=== PATIENT | male | born 1945 | race Caucasian/White ===

== ENCOUNTER 2023-07-26 17:11 | Inpatient (IN) | payer MEDICARE, SELFPAY ==
--- NOTE | ~2023-07-26 | US_ITS ---
EXAMINATION: US abdomen limited DATE: 07/27/2023 08:25 INDICATION: Abdominal pain. TECHNIQUE: Multiple grayscale and Doppler ultrasound images of the abdomen were obtained. COMPARISON: CT abdomen and pelvis 07/26/2023 FINDINGS: The visualized portions of the head and body of the pancreas are normal. The liver is cameron l without focal lesion. There is normal flow in main portal vein. The gallbladder is distended. No vi sible gallstones. Gallbladder wall thickening is noted. There is no sonographic Miller sign. The comm on duct is normal and measures 4 mm. IMPRESSION: 1. Gallbladder distention and gallbladder wall thickening, but no visible gallstones or sonographic M urphy sign. These findings are indeterminate for acute cholecystitis. Consider hepatobiliary scintigr aphy. Reviewed, dictated and finalized at location A. IMPRESSION: 1. Gallbladder distention and gallbladder wall thickening, but no visible galls tones or sonographic Miller sign. These findings are indeterminate for acute ch olecystitis. Consider hepatobiliary scintigraphy.
--- NOTE | ~2023-07-26 | CT_ITS ---
EXAMINATION: CT abdomen pelvis w con DATE: 07/26/2023 18:58 INDICATION: Abdominal pain, fever, nausea, vomiting and diarrhea. TECHNIQUE: Computed tomography (CT) of the abdomen and pelvis was performed with 100 mL Omnipaque-350 intravenous contrast. Automated exposure control and iterative reconstruction technique were employe d. The dose-length product was 299.09 mGy-cm. COMPARISON: None FINDINGS: Mild dependent and basilar atelectasis at the bilateral lower lungs. Heart size is normal. Atheroscle rotic coronary artery calcifications and change of prior median sternotomy. No pericardial or pleural effusion. Small sliding-type hiatal hernia. There is subtle haziness to the fat along the mildly dis tended gallbladder which measures up to 4.4 cm but which is without evident wall thickening. No intra or extra hepatic biliary ductal dilation. Liver, spleen, pancreas and bilateral adrenal glands are n ormal. Small bilateral renal atrophy with multiple small bilateral renal cysts the largest on the rig ht measuring 1.4 cm in maximal diameter. 4 mm nonobstructing stone in upper pole calyx of the right k idney. There is mild colonic diverticulosis with a sigmoid and descending colon predominance. There is no adjacent inflammatory change to suggest diverticulitis. Small bowel and appendix are normal. B ladder is normal. Mild prostatomegaly. No free intraperitoneal gas or fluid. No pathologically enlarg ed abdominal or pelvic lymphadenopathy. Back abdominal aorta. Severe lumbar spondylosis. IMPRESSION: 1. Suggestion mild pericholecystic stranding but without evident gallbladder wall thickening which do es raise mild suspicion for acute cholecystitis. Correlate for Miller sign and if clinically indicate d could consider further evaluation with either right upper quadrant ultrasound or HIDA scan. 2. Small sliding-type hiatal hernia. 3. 4 mm nonobstructing right renal stone. 4. Mild diverticulosis. Reviewed, dictated and finalized at location A. IMPRESSION: 1. Suggestion mild pericholecystic stranding but without evident gallbladder wa ll thickening which does raise mild suspicion for acute cholecystitis. Correlat e for Miller sign and if clinically indicated could consider further evaluation with either right upper quadrant ultrasound or HIDA scan. 2. Small sliding-type hiatal hernia. 3. 4 mm nonobstructing right renal stone. 4. Mild diverticulosis.
[2023-07-26 17:13] VITALS: BP 159/80; PULSE 112; RESP 20; TEMP 36.8; O2SAT 97
--- NOTE | 2023-07-26 18:01 | ED.GENADULT ---
HPI - General Adult General Chief complaint: Abdominal Pain <Lula Cage, SALES PROGRAM COORDINATOR - Last Filed: 07/26/23 18:07> Stated complaint: fever, gall bladder issues <Lula Cage SALES PROGRAM COORDINATOR - Last Filed: 07/26/23 18:07> Time Seen by Provider: 07/26/23 18:01 <Lula Cage, SALES PROGRAM COORDINATOR - Last Filed: 07/26/23 18:07> Focused HPI: Eric Solomon is a 78 y/o male who presents with reports of having abdominal pain right upper quadrant at 2200, he went to an ER in [place] last night for it and had a cardiac work up that was normal and then ct of abdomen and it showed inflamed gallbladder, but stable and instructed to return if his pain got worse. He saw his PCP today and he states that the pain is still there / no nausea/vomiting/ he had a Gatorade today but hasn't wanted to eat anything today. His PCP wanted him to get checked back out. GENERAL: no acute distress. HEAD: Normocephalic, atraumatic. CHEST: Clear to auscultation. ?No respiratory distress. HEART: Regular rate and rhythm.? NEURO: ?Alert and oriented x3. Patient screened in triage and initial orders placed.? ?Additional care and disposition to be based upon?diagnostic testing and treatment. <Lula Cage, SALES PROGRAM COORDINATOR - Last Filed: 07/26/23 18:07> Source: patient and family <Lesia Winchester MD - Last Filed: 07/26/23 23:56> Mode of arrival: ambulatory <Lesia Winchester MD - Last Filed: 07/26/23 23:56> Limitations: no limitations <Lesia Winchester MD - Last Filed: 07/26/23 23:56> History of Present Illness HPI narrative: Agree with above with the following additions: Had received a phone call from patient's PCP office regarding this patient. They note that he had gone to the [facility] ED (an OSH) yesterday and had a CT scan showed a distended gallbladder. They note that he had history sludge previously noted. They note that he was not placed on oral antibiotics and that he had gotten worse, now with fevers chills. They stated they could not send him back to the original emergency department given no surgeon on-call and thus advising he presents by private vehicle here which he did. Patient states he went to the emergency department at approximately 10:00 p.m. last night. He states his symptoms of nausea vomiting started Monday have since resolved. He went to the primary care physician today and was febrile. Last oral intake 2:00 p.m.. Last bowel movement yesterday evening and he denies diarrhea, constipation bloody stools. He does continue to have right upper quadrant pain. Patient's only medications are amlodipine 5mg, Lipitor, and gabapentin. Not on anticoagulation. <Lesia Winchester MD - Last Filed: 07/26/23 23:56> Related Data Allergies/adverse reactions: Allergies Allergy/AdvReac Type Severity Reaction Status Date / Time penicillin G Allergy Rash Verified 07/26/23 19:06 <Lula Cage SALES PROGRAM COORDINATOR - Last Filed: 07/26/23 18:07> PMFSH Past Medical History Medical History: Medical History (Updated 07/26/23 @ 23:56 by Lesia Winchester MD) Hypertension <Lula Cage, SALES PROGRAM COORDINATOR - Last Filed: 07/26/23 18:07> Surgical History Surgical History: Surgical History (Updated 07/26/23 @ 20:47 by Giorgio Roy MD) H/O heart bypass surgery 2004 <Lula Cage, SALES PROGRAM COORDINATOR - Last Filed: 07/26/23 18:07> Social History Social History: Social History (Updated 07/26/23 @ 20:03 by Lesia Winchester MD) Living arrangements: with family <Lula Cage SALES PROGRAM COORDINATOR - Last Filed: 07/26/23 18:07> Exam Narrative: GENERAL: Well-appearing, well-nourished, and in no acute distress. HEAD: Normocephalic, atraumatic. EYES: Non injected, non icteric ENT: Nares clear, no rhinorrhea or epistaxis. NECK: Supple. CHEST: Speaking in full sentences. No respiratory distress. HEART: Tachycardic rate and rhythm. . ABDOMEN: Soft, nondistended. Tenderness to palpation of right upper quadrant. Miller sign positive. EXTREMITIES: Normal ran
[2023-07-26 18:22] LABS: Hematocrit 40.6 % (42.0-52.0); Hemoglobin 13.3 g/dL (14.0-18.0); Mean Corpuscular HGB Conc 32.8 g/dl (32-36); Mean Corpuscular Hemoglobin 32.4 pg (26-34); Mean Corpuscular Volume 98.8 fl (80-100); Mean Platelet Volume 9.1 fl (7.4-10.4); Platelet Count Result 223 k/mm3 (150-375); Red Blood Count 4.11 M/mm3 (4.6-6.20); Red Cell Distribution Width 13.4 % (11.5-14.5); White Blood Count 20.4 K/mm3 (4.5-10.0)
[2023-07-26 18:33] LABS: Alanine Aminotransferase 20 U/L (6-50); Albumin Level 4.3 g/dL (3.5-5.1); Alkaline Phosphatase 68 U/L (38-126); Anion Gap 5 mmol/L (4-12); Aspartate Amino Transferase 39 U/L (17-59); Bilirubin,Total 0.7 mg/dL (0.2-1.3); Blood Urea Nitrogen 22 mg/dL (9-20); Carbon Dioxide 31 mmol/L (22-30); Chloride 99 mmol/L (98-107); Estimated CRCL calculation 51 ml/min; Estimated Glomerular Filt Rate > 60; Glucose 113 mg/dL (65-110); Lipase 31 U/L (23-300); Potassium 4.1 mmol/L (3.4-5.0); Sodium 135 mmol/L (137-145)
[2023-07-26 18:40] VITALS: BP 153/80; PULSE 93; RESP 18; TEMP 37.8; O2SAT 99
[2023-07-26 18:40] LABS: Appearance Urine Clear (Clear); Bacteria Urine None Seen /hpf; Bilirubin Urine Negative (Negative); Blood Urine 2+ (Negative); Color Urine Dark Yellow (Yellow); Glucose Urine UA Negative (Negative); Ketones Urine Negative (Negative); Leukocyte Esterase Ur Negative LEU/UL (Negative); Nitrate Urine Negative (Negative); Non Pathogenic Casts 0-2; Protein Urine 1+ mg/dL (Negative); RBC Urine 51-100 /hpf (0-2); Squamous Epithelial Cell Urine None Seen /hpf (Few); Urobilinogen Urine 0.2 mg/dL (<2.0); WBC Urine 0-5 /hpf (0-3); pH Urine 5.5 (5.0-9.0)
[2023-07-26 18:55] LABS: Band Neutrophils Percent 3 % (0-6); Lymphocytes Absolute Manual 1.02 K/mm3 (1.1-4.5); Monocytes Absolute Manual 1.42 K/mm3 (0.1-0.90); Monocytes Percent Manual 7 % (3-9); Neutrophils Absolute Manual 17.95 K/mm3 (1.3-6.7); Neutrophils Percent Manual 85 % (46-73); Platelet Estimate Adequate (Adequate); Schistocytes None Seen; Total Cells Counted 100
[2023-07-26 19:02] LABS: Specific Grav Ur 1.042 (1.001-1.035)
[2023-07-26 19:03] LABS: Add Urine Microscopic? YES
[2023-07-26] MEDS: ACETAMINOPHEN 500 MG TABLET 1000 MG PO (19:34)
[2023-07-26] MEDS: CEFEPIME 1 GM/NS 50 ML 1 GM/50 ML BAG IVPB (19:57)
[2023-07-26 20:03] LABS: Lactic Acid Reflex 1.3 mmol/L (0.7-2.0)
[2023-07-26] MEDS: VANCOMYCIN 1,500 MG/NS 500 ML 1,500 MG/500 ML BAG 250 MG IVPB (20:29)
--- NOTE | 2023-07-26 20:42 | PM.IMHP ---
H&P: HPI History of Present Illness Date/Time: 07/26/23 20:42 Chief Complaint: Abdominal pain right upper quadrant Narrative: Patient came to the hospital complaining of abdominal pain nausea vomiting and diarrhea. According the patient on Monday early Monday he started to have some diarrhea and abdominal pain he seek medical help on Monday then he went to the urgent care center initial workup showed that he had gallstones with some sludging. He was given IV antibiotics and sent home. Patient was asked to follow-up with the GI and surgical team as outpatient. Tonight patient came to our emergency room complaining of severe abdominal pain getting worse not able to keep any food down. Patient has history of hypertension also history of coronary disease history of CABG done about 19 years ago. Patient has past medical history of hyperlipidemia, gastric reflux, peripheral neuropathy Review of Systems Review of Systems: No fevers chills nausea vomiting. No double vision no blurry vision. No difficulty hearing or sinus complaints. No chest pain shortness of breath fever palpitation dizziness ankle swelling. No coughing wheezing chills. Has abdominal pain reflux. No urgency frequency of urination. No hematuria. No skin rash eczema. No anxiety depression difficulty sleeping. No bleeding gums enlarged glands. No muscle ache back pain joint stiffness. No loss of strength numbness headache tremor or loss of memory. [facility] Past Medical History Medical History (Updated 07/26/23 @ 20:52 by Giorgio Roy MD) Hypertension Surgical History Surgical History (Updated 07/26/23 @ 20:47 by Giorgio Roy MD) H/O heart bypass surgery 2004 Social History Social History (Updated 07/26/23 @ 20:03 by Lesia Winchester MD) Living arrangements: with family Meds Home Medications and Allergies Allergies Allergy/AdvReac Type Severity Reaction Status Date / Time penicillin G Allergy Rash Verified 07/26/23 19:06 Vital Signs Vital Signs - 24 hr 07/26/23 17:13 07/26/23 18:40 Temperature 36.8 C 37.8 C H Pulse Rate 112 H 93 Respiratory Rate 20 18 Blood Pressure 159/80 H 153/80 H Pulse Oximetry 97 99 Oxygen Delivery Room Air Exam Narrative: GENERAL: Well appearing, no acute distress. HEAD: Normocephalic, atraumatic. NECK: Supple. No adenopathy, no masses. RESPIRATORY: respirations nonlabored. , no rales, wheezing. CARDIOVASCULAR: Regular rate and rhythm without murmurs, . Peripheral pulses 2+ and equal bilaterally. ABDOMINAL: Soft, tender, right upper quadrant guarding rebound tenderness nondistended, no hepatosplenomegaly. Normoactive BS. MUSCULOSKELETAL: no Epigastric and no hypochondrial tenderness SKIN: Warm, dry, NEURO: A&O X3. Moves all extremities H&P: Results Labs Labs: Short CBC 07/26/23 Range/Units 18:13 WBC 20.4 H (4.5-10.0) K/mm3 Hgb 13.3 L (14.0-18.0) g/dL Hct 40.6 L (42.0-52.0) % Plt Count 223 (150-375) k/mm3 BMP 07/26/23 18:13 Sodium 135 L Potassium 4.1 Chloride 99 Carbon Dioxide 31 H BUN 22 H Creatinine 1.10 Glucose 113 H Calcium 9.0 Liver Function 07/26/23 Range/Units 18:13 Total Bilirubin 0.7 (0.2-1.3) mg/dL AST 39 (17-59) U/L ALT 20 (6-50) U/L Alkaline Phosphatase 68 (38-126) U/L Albumin 4.3 (3.5-5.1) g/dL Urine 07/26/23 Range/Units 18:13 Urine Color Dark yellow (Yellow) Urine Appearance Clear (Clear) Urine pH 5.5 (5.0-9.0) Ur Specific [place] 1.042 H (1.001-1.035) Urine Protein 1+ H (Negative) mg/dL Urine Glucose (UA) Negative (Negative) mg/dL Assessment and Plan Assessment and plan (1) Hypertension: Qualifiers: Hypertension type: primary hypertension Qualified Code(s): I10 - Essential (primary) hypertension Code(s): I10 - Essential (primary) hypertension Status: Acute (2) H/O heart bypass surgery:
[2023-07-26 20:54] VITALS: BP 136/76; PULSE 96; RESP 16; TEMP 37.1; O2SAT 100
--- NOTE | 2023-07-26 21:41 | PC.NURSE ---
Per EDP Dr. Winchester d/c LR and give d5/ns45 that hospitalist ordered
[2023-07-26 21:53] LABS: Hematocrit 37.8 % (42.0-52.0); Hemoglobin 12.4 g/dL (14.0-18.0); Mean Corpuscular HGB Conc 32.8 g/dl (32-36); Mean Corpuscular Volume 97.7 fl (80-100); Platelet Count Result 192 k/mm3 (150-375); Red Blood Count 3.87 M/mm3 (4.6-6.20); Red Cell Distribution Width 13.6 % (11.5-14.5); White Blood Count 21.2 K/mm3 (4.5-10.0)
[2023-07-26 22:00] LABS: Total Cells Counted 100
[2023-07-26 22:01] LABS: Band Neutrophils Percent 5 % (0-6); Lymphocytes Absolute Manual 1.06 K/mm3 (1.1-4.5); Lymphocytes Percent Manual 5 % (18-44); Monocytes Absolute Manual 1.48 K/mm3 (0.1-0.90); Monocytes Percent Manual 7 % (3-9); Neutrophils Absolute Manual 18.65 K/mm3 (1.3-6.7); Neutrophils Percent Manual 83 % (46-73)
[2023-07-26 22:02] LABS: Platelet Estimate Adequate (Adequate); Schistocytes None Seen
[2023-07-26] MEDS: DEXTROSE 5%/0.45% SOD CHL 1,000 ML 100 ML IV CONT (22:33)
[2023-07-26 22:55] VITALS: BP 142/87; PULSE 90; RESP 16; O2SAT 95
[2023-07-26] MEDS: MORPHINE SULFATE (*CRX) 2 MG/ML INJ IV PUSH (23:48)
[2023-07-26 23:52] VITALS: BMI 21.8
--- NOTE | 2023-07-26 23:58 | PC.NURSE ---
This patient, Eric Solomon, was admitted to 3 [facility] Surg Room 332-02. Patient/family oriented to hospital policies and general routines including ID bracelet, bed and alarms, visiting hours, pain management, procedures, bathroom and other care routines, personal items, smoking policy, room service/diet, and visiting hours. Information on how to activate the Rapid Response Team has been discussed. Patient/Family are encouraged to report perceived risks to care and to ask questions if they do not understand what they are told or what they should do.
[2023-07-27] VITALS (18 sets, daily range): BP systolic 131–151; BP diastolic 61–76; PULSE 76–113; RESP 16–20; TEMP 36.6–38.8; O2SAT 92–100
[2023-07-27] MEDS: MORPHINE SULFATE (*CRX) 2 MG/ML INJ IV PUSH (03:52)
[2023-07-27] MEDS: ACETAMINOPHEN 325 MG TABLET 650 MG PO (05:30)
[2023-07-27 06:45] LABS: Basophils Absolute Auto 0.1 K/mm3 (0.0-0.1); Basophils Percent Auto 0.3 % (0.2-1.2); Immature Granulocyte Absolute 0.27 K/mm3 (0.00-0.031); Immature Granulocyte Percent A 1.2 % (0-0.5); Lymphocytes Absolute Auto 0.89 K/mm3 (0.9-3.2); Lymphocytes Percent Auto 3.9 % (18.3-44.2); Mean Corpuscular HGB Conc 32.4 g/dl (32-36); Mean Corpuscular Hemoglobin 31.8 pg (26-34); Mean Corpuscular Volume 98.1 fl (80-100); Mean Platelet Volume 9.8 fl (7.4-10.4); Monocytes Absolute Auto 1.9 K/mm3 (0.1-0.6); Monocytes Percent Auto 8.2 % (2.6-8.5); Neutrophils Absolute Auto 19.7 K/mm3 (1.3-6.7); Neutrophils Percent Auto 86.4 % (45.5-73.1); Platelet Count Result 201 k/mm3 (150-375); Red Blood Count 3.77 M/mm3 (4.6-6.20); Red Cell Distribution Width 13.7 % (11.5-14.5); White Blood Count 22.8 K/mm3 (4.5-10.0)
[2023-07-27 06:55] LABS: INR 1.1; Prothrombin Time 15.3 Seconds (11.1-14.7)
[2023-07-27 06:56] LABS: Partial Thromboplastin Time 35.2 Seconds (22.3-36.8)
[2023-07-27 07:06] LABS: Alanine Aminotransferase 28 U/L (6-50); Albumin Level 3.5 g/dL (3.5-5.1); Alkaline Phosphatase 68 U/L (38-126); Anion Gap 3 mmol/L (4-12); Aspartate Amino Transferase 44 U/L (17-59); Bilirubin,Total 0.9 mg/dL (0.2-1.3); Blood Urea Nitrogen 18 mg/dL (9-20); Calcium 8.4 mg/dL (8.4-10.2); Carbon Dioxide 31 mmol/L (22-30); Chloride 102 mmol/L (98-107); Estimated CRCL calculation 56 ml/min; Estimated Glomerular Filt Rate > 60; Glucose 114 mg/dL (65-110); Sodium 136 mmol/L (137-145)
[2023-07-27] MEDS: PANTOPRAZOLE SODIUM IV 40 MG VIAL IV PUSH (08:57)
--- NOTE | 2023-07-27 09:00 | PM.IMPN ---
Progress Note: A&P Assessment and Plan (1) Sepsis: Code(s): A41.9 - Sepsis, unspecified organism Status: Acute Assessment and Plan: Meets SIRS criteria: Febrile, Tachycardic, WBC 22.8. - lactic acid: 1.3 - 30 mL/kg = 2190ml - suspected source: cholecystitis - blood cultures drawn on 07/25 - UA: dark yellow, specific gravity 1.042, 51-100 RBC. Otherwise unremarkable. - Abdomen/Pelvis CT: Suggestion mild pericholecystic stranding but without evident gallbladder wall thickening which does raise mild suspicion for acute cholecystitis. - Abdominal US: Gallbladder distention and gallbladder wall thickening, but no visible gallstones or sonographic Miller sign. These findings are indeterminate for acute cholecystitis. (2) Acute cholecystitis: Code(s): K81.0 - Acute cholecystitis Status: Acute Assessment and Plan: Abdomen/Pelvis CT: Suggestion mild pericholecystic stranding but without evident gallbladder wall thickening which does raise mild suspicion for acute cholecystitis. Abdominal US: Gallbladder distention and gallbladder wall thickening, but no visible gallstones or sonographic Miller sign. These findings are indeterminate for acute cholecystitis. - Antibiotics: Vancomycin and cefepime - Laparoscopic cholecystectomy with Dr. Duran 07/26 (3) Hypertension: Code(s): I10 - Essential (primary) hypertension Status: Acute Assessment and Plan: Chronic, stable. Continue home medication. - Amlodipine 5 mg daily - Monitor (4) Hematuria: Code(s): R31.9 - Hematuria, unspecified Status: Acute Assessment and Plan: UA: dark yellow, specific gravity 1.042, 51-100 RBC. Otherwise unremarkable. Patient continues to have minimal hematuria with associated dysuria. States this feels similar to previous kidney stone. Patient found to have a 4mm nonobstructing right renal stone on CT. - Continue to monitor Time Spent With Patient Time with patient: 25 - 35 minutes Subjective Date/time seen: 07/27/23 09:00 Interval history: 78 year old male with past medical history of hypertension, hyperlipidemia, coronary artery disease s/p CABG, GERD, and peripheral neuropathy Patient is pleasant lying in bed with at bedside. He continues to endorse abdominal pain and notes that he is scheduled for surgery today with Dr. Duran. He denies chest pain, shortness of breath, nausea/vomiting, and changes in his bowel. He has minimal hematuria with associated dysuria. He states this feels very similar to his previous kidney stone. Review of Systems Review of Systems: All systems reviewed & are unremarkable except as noted in HPI and below Exam Narrative: F HR 105 RR 18 SpO2 93 BP 137/61 General: well nourished, well-developed male in no acute respiratory distress who is nontoxic appearing, lying semi recumbent in bed. HEENT: Normocephalic. Atraumatic. Pupils equal round reactive to light. Extraocular movement intact. No facial asymmetry. Chest: Lungs are clear to auscultation bilaterally. No wheezes or crackles. CV: Heart was regular rate and rhythm. S1/S2. No murmurs, gallops, or rubs. Abd: Abdomen was soft. RUQ tenderness to palpation. Nondistended. Positive bowel sounds. No organomegaly or masses. Ext: No clubbing, cyanosis, or edema. 2+ DP pulses bilaterally. Neuro: Patient is alert and oriented x4. Speech is clear. Psych: Normal mood and affect. Patient is pleasant and cooperative. Skin: Warm and dry. No rashes noted. Objective Data Vital Signs Vital Signs: Vital Signs - 24 hr 07/26/23 17:13 07/26/23 18:40 07/26/23 20:54 Temperature 98.3 F 100.1 F H 98.7 F Pulse Rate 112 H 93 96 Respiratory Rate 20 18 16 Blood Pressure 159/80 H 153/80 H 136/76 Pulse Oximetry 97 99 100 Oxygen Delivery Room Air 07/26/23 22:55 07/26/23 23:37 07/27/23 05:30 Temperature 100.5 F H Pulse Rate 90 Respiratory Rate 16 Blood Pressure 142/87 H Pulse Oximetry 95 Oxy
[2023-07-27] MEDS: CEFEPIME 1 GM/NS 50 ML 1 GM/50 ML BAG IVPB ×2 (09:19→19:58)
--- NOTE | 2023-07-27 10:50 | PM.CNGS ---
Assessment and Plan Assessment and plan (1) Acute cholecystitis: Code(s): K81.0 - Acute cholecystitis Status: Acute Assessment and Plan: CT showed pericholecystic stranding with gallbladder distention and RUQ ultrasound showed gallbladder distention and wall thickening, but no CT or ultrasound evidence of gallstones or sludge. He was told in [facility] that he had sludge in his gallbladder, but these records are not available. He continues to have abdominal pain and is tender in the right upper quadrant. Imaging is consistent with acute cholecystitis, which could be acalculous cholecystitis even though this is less common, or he could have gallstones or sludge that were not visible on CT/US. This appears to likely be the source of his leukocytosis/sepsis. We discussed treatment options with the patient, including nonoperative and surgical treatment options. We discussed proceeding with a laparoscopic cholecystectomy, possible open by Dr. Durna under general anesthesia, for source control. Description of the procedure, risks, benefits, expected outcomes, and expected recovery were discussed with the patient in detail. We discussed the risks of bile leak and bile duct injury, liver/bowel injury, bleeding, and infection. Also discussed the possibility of having to convert to an open procedure if necessary. Patient agrees with proceeding with surgery. Continue IV antibiotics and keep NPO with IV fluids. Will add him onto the surgery schedule accordingly. (2) Sepsis: Code(s): A41.9 - Sepsis, unspecified organism Status: Acute Assessment and Plan: Presented with leukocytosis, fever, tachycardia. Likely secondary to acute cholecystitis. Discussed with Dr. Duran and plan to proceed with surgery. Continue broad-spectrum IV antibiotics, IV fluids. Blood cx pending. (3) H/O heart bypass surgery: Code(s): Z95.1 - Presence of aortocoronary bypass graft Status: Acute Assessment and Plan: Remote history (4) Hypertension: Code(s): I10 - Essential (primary) hypertension Status: Acute (5) Hematuria: Code(s): R31.9 - Hematuria, unspecified Status: Acute Assessment and Plan: Patient reports hematuria and dysuria this morning. His UA in the ER yesterday did show 2+ blood and 51-100 RBCs. Negative for UTI. Management per Hospitalist. Plan I have discussed the patient's case and plan of care with Dr. Duran. Thank you for allowing us to see the patient in consultation and we will continue to follow along with you. History of Present Illness Consult details Consult date: 07/26/23 Reason for consult: other (Cholecystitis) Requesting physician: Lesia Winchester MD Narrative: This is a 78-year-old man who we have been asked to see in surgical consultation for possible cholecystitis. He presented to [facility] ER 2 nights ago for upper abdominal pain that began early Monday morning. The patient reports having nausea, vomiting, and diarrhea throughout the day on Monday as well. This stopped after Monday, but his abdominal pain continued and he went to the ER on Monday. No records to review here from [place], but per the patient and his they were told he had sludge from a bedside ultrasound. He also had a CT scan of the abdomen and pelvis but they are unsure what this showed. They were discharged with no medications and he does not believe they gave him any antibiotics in the ER. They were told to f/u with his PCP, so they had made an appointment yesterday to see her in the office in [place]. She directed him to [facility] where he could be evaluated at a facility that has surgery available. In our ER, [place] [address], hemoglobin 13.3, BUN 22, creatinine 1.1, lactic acid 1.3, LFTs and lipase normal. CT scan of the abdomen and pelvis showed mild pericholecystic stranding with out evident gallbladder wall thickening, which raises the concern for
--- NOTE | 2023-07-27 11:25 | PM.PNGS ---
Progress Note: A&P Assessment and Plan (1) Acute cholecystitis: Code(s): K81.0 - Acute cholecystitis Status: Acute Assessment and Plan: Continue IV antibiotics, IV fluids, and NPO for surgery Plan to proceed with laparoscopic cholecystectomy by Dr. Duran today. All questions were answered this morning. (2) Sepsis: Code(s): A41.9 - Sepsis, unspecified organism Status: Acute Assessment and Plan: WBC up to 22.8k today. Likely secondary to acute cholecystitis. Proceed to the OR for source control Continue IV antibiotics, IV fluids Blood cx pending (3) Hematuria: Code(s): R31.9 - Hematuria, unspecified Status: Acute Assessment and Plan: Patient reports hematuria and dysuria this morning. His UA in the ER yesterday did show 2+ blood and 51-100 RBCs. Negative for UTI. Management per Hospitalist. Plan I have discussed the patient's case and plan of care with Dr. Duran. Subjective Subjective Date/Time Seen: 07/27/23 11:25 Patient reports: no new complaints and still having pain Interval history: Patient still complaining of upper abdominal pain. His WBC count is up to 22.8k today. LFTs normal. No other complaints at this time. Exam Const: General: comfortable and no acute distress Orientation/consciousness: patient oriented x3 GI: Inspection: non-distended GI Palp: Yes Soft to palpation, Yes Tenderness to palpation present (GI) (RUQ), Yes Guarding due to palpation present (GI) (RUQ), Yes No hepatosplenomegaly present and No Rebound tenderness present Auscultation: normal bowel sounds Objective Data Vital Signs Vital Signs: Vital Signs - 24 hr 07/26/23 17:13 07/26/23 18:40 07/26/23 20:54 Temperature 98.3 F 100.1 F H 98.7 F Pulse Rate 112 H 93 96 Respiratory Rate 20 18 16 Blood Pressure 159/80 H 153/80 H 136/76 Pulse Oximetry 97 99 100 Oxygen Delivery Room Air 07/26/23 22:55 07/26/23 23:37 07/27/23 05:30 Temperature 100.5 F H Pulse Rate 90 Respiratory Rate 16 Blood Pressure 142/87 H Pulse Oximetry 95 Oxygen Delivery Room Air 07/27/23 06:00 07/27/23 04:00 07/27/23 06:30 Temperature 100.5 F H 100.2 F H Pulse Rate 106 H 106 H Respiratory Rate 16 Blood Pressure 138/70 Pulse Oximetry 92 Oxygen Delivery 07/27/23 08:00 Temperature Pulse Rate 107 H Respiratory Rate Blood Pressure Pulse Oximetry Oxygen Delivery Intake/Output Intake/Output: Intake & Output 07/24/23 07/25/23 07/26/23 07/27/23 23:59 23:59 23:59 23:59 Intake Total 550 50 Balance 550 50 Meds/Results Medications: Active Medications Generic Name Dose Route Start Last Admin Trade Name Freq PRN Reason Stop Dose Admin Acetaminophen 650 mg 07/26/23 20:04 07/27/23 05:30 Acetaminophen 325 Mg Tablet PO 650 mg Q4H PRN Administration Mild Pain (1-3) or Fever Vancomycin HCl 1,250 mg in 250 mls @ 166.667 mls/hr 07/27/23 20:00 Vancomycin 1,250 Mg/Ns 250 Ml IVPB Q24H FELICITY Dextrose/Sodium Chloride 1,000 mls @ 100 mls/hr 07/26/23 20:40 07/26/23 22:33 Dextrose 5% Sodium Chloride 0.45% IV CONT 100 mls/hr .Q10H FELICITY Administration Cefepime HCl 1 gm in 50 mls @ 100 mls/hr 07/27/23 10:00 07/27/23 09:49 Maxipime 1 Gm/Ns 50 Ml IVPB Infused Q12HR FELICITY Infusion Morphine Sulfate 2 mg 07/26/23 20:38 07/27/23 03:52 Morphine Sulfate (*Crx) 2 Mg/Ml Inj IV PUSH 2 mg Q4H PRN Administration Pain Rated 7-10 Ondansetron HCl 4 mg 07/26/23 20:04 Ondansetron Inj 4 Mg/2 Ml Vial IV PUSH Q4H PRN Nausea Ondansetron HCl 4 mg 07/26/23 20:38 Ondansetron Inj 4 Mg/2 Ml Vial IV PUSH Q6H PRN Nausea And Vomiting Pantoprazole Sodium 40 mg 07/27/23 09:00 07/27/23 08:57 Pantoprazole Sodium Iv 40 Mg Vial IV PUSH 40 mg DAILY FELICITY Administration Radiology Results: ITS Impressions Abdomen/Pelvis CT 07/26/23 19:13 IMPRESSION: 1. Suggestion mild pericholecys
--- NOTE | 2023-07-27 13:03 | ECG_ITS ---
Measurements Intervals [place] Rate: 99 P: 71 [place]: 162 QRS: -13 QRSD: 102 T: 57 QT: 324 QTc: 416 Interpretive Statements SINUS RHYTHM CANNOT RULE OUT SEPTAL MYOCARDIAL INFARCTION , OF INDETERMINATE AGE [40+ ms Q WAVE IN V1/V2] BORDERLINE ECG NO PREVIOUS ECG AVAILABLE FOR COMPARISON Electronically Signed On 07-28-2023 7:35:50 CDT by Dusty Palma M.D.
--- NOTE | 2023-07-27 14:20 | PC.NURSE ---
To OR per [SEPTEMBER] IV [22 L fa]. Report given to [ESTER ].
--- NOTE | 2023-07-27 15:43 | WPDANESEPPF ---
Anes - Initial Pre Proc Eval Procedure: Operation Date: 07/27/23 15:30 Proposed Procedures p Laparoscopic Cholecystectomy, Possible Open - David Duran MD Date/Time: 07/27/23 15:43 Surgeon: Roger Pre Op Diagnosis: Cholecystitis Patient Data Age: 78 Gender: M Height: 1.83 m Weight: 73 kg Last Vital Signs Temp 38.8 C H 07/27/23 14:30 Pulse 105 H 07/27/23 14:30 Resp 18 07/27/23 14:30 BP 137/61 07/27/23 14:30 Pulse Ox 93 07/27/23 14:30 O2 Del Method Room Air 07/27/23 14:30 Allergies Allergy/AdvReac Type Severity Reaction Status Date / Time penicillin G Allergy Rash Verified 07/26/23 19:06 Home Medications Medication Instructions Recorded Confirmed Type amlodipine 5 mg tablet 5 mg PO DAILY 07/27/23 07/27/23 History aspirin 81 mg tablet 81 mg PO DAILY 07/27/23 07/27/23 History atorvastatin 10 mg tablet 10 mg PO HS 07/27/23 07/27/23 History fluorometholone 0.1 % eye 1 drp EACH EYE DAILY 07/27/23 07/27/23 History drops,suspension fluorouracil 1 % topical cream 1 applic topical BID PRN new skin 07/27/23 07/27/23 History cancer fluticasone propionate 50 1 spray intranasal DAILY PRN 07/27/23 07/27/23 History mcg/actuation nasal Congestion spray,suspension gabapentin 300 mg capsule 300 mg PO HS 07/27/23 07/27/23 History omeprazole 40 mg capsule,delayed 40 mg PO DAILY 07/27/23 07/27/23 History release vitamins A,C,I-qjgi-gdltmc 4,296 1 cap PO QAM AND QPM 07/27/23 07/27/23 History mcg-226 mg-90 mg capsule (PreserVision AREDS) Laboratory Tests 07/26/23 07/26/23 07/26/23 18:13 19:38 21:46 WBC 20.4 H K/mm3 21.2 H K/mm3 (4.5-10.0) (4.5-10.0) RBC 4.11 L M/mm3 3.87 L M/mm3 (4.6-6.20) (4.6-6.20) Hgb 13.3 L g/dL 12.4 L g/dL (14.0-18.0) (14.0-18.0) Hct 40.6 L % 37.8 L % (42.0-52.0) (42.0-52.0) MCV 98.8 fl 97.7 fl (80-100) (80-100) MCH 32.4 pg 32.0 pg (26-34) (26-34) MCHC 32.8 g/dl 32.8 g/dl (32-36) (32-36) RDW 13.4 % 13.6 % (11.5-14.5) (11.5-14.5) Plt Count 223 k/mm3 192 k/mm3 (150-375) (150-375) MPV 9.1 fl 9.0 fl (7.4-10.4) (7.4-10.4) Immature Gran % (Auto) Not Reportable Not Reportable Neut % (Auto) Not Reportable Not Reportable Lymph % (Auto) Not Reportable Not Reportable [place] % (Auto) Not Reportable Not Reportable Eos % (Auto) Not Reportable Not Reportable Baso % (Auto) Not Reportable Not Reportable Lymph # (Auto) Not Reportable Not Reportable [place] # (Auto) Not Reportable Not Reportable Eos # (Auto) Not Reportable Not Reportable Baso # (Auto) Not Reportable Not Reportable Abs Immat Gran (auto) Not Reportable Not Reportable Absolute Neuts (auto) Not Reportable Not Reportable Absolute Nucleated RBC Not Reportable Not Reportable Total Counted 100 100 Neutrophils % (Manual) 85 H % 83 H % (46-73) (46-73) Band Neutrophils % 3 % 5 % (0-6) (0-6) Lymphocytes % (Manual) 5.0 L % 5 L % (18-44) (18-44) Monocytes % (Manual) 7 % 7 % (3-9) (3-9) Nucleated RBC % Not Reportable Not Reportable Abs Neuts (Manual) 17.95 H K/mm3 18.65 H K/mm3 (1.3-6.7) (1.3-6.7) Abs Lymphs (Manual) 1.02 L K/mm3 1.06 L K/mm3 (1.1-4.5) (1.1-4.5) Abs Monocytes (Manual) 1.42 H K/mm3 1.48 H K/mm3 (0.1-0.90) (0.1-0.90) Platelet Estimate Adequate Adequate (Adequate) (Adequate) Schistocytes None seen None seen PT INR APTT Sodium 135 L mmol/L (137-145) Potassium 4.1 mmol/L (3.4-5.0) Chloride 99 mmol/L (98-107) Carbon Dioxide 31 H mmol/L (22-30) Anion Gap 5 mmol/L (4-12) BUN 22 H mg/dL (9-20) Creatinine 1.
--- NOTE | 2023-07-27 15:57 | WPDHPUPDATE1 ---
History and Physical Update Update Date/Time: 07/27/23 15:57 History and Physical has been reviewed, including an updated exam of the patient. There are NO changes in the patient's condition. Risks, benefits, and alternatives have been discussed and questions answered. Patient agrees to proceed with procedure.
[2023-07-27] MEDS: LIDO 1%/EPINEPHRINE 1:100,000 50 ML VIAL INFILTRATE (16:51)
[2023-07-27] MEDS: BUPivacaine HCL 0.5% 10 ML AMP 20 ML INFILTRATE (16:51)
[2023-07-27] MEDS: LACTATED RINGERS 1,000 ML 30 ML IV CONT (17:42)
--- NOTE | 2023-07-27 17:57 | W.PM.PROC2 ---
Procedure Note - Detailed Date of Procedure 07/27/23 Pre-op Diagnosis Cholecystitis Post-op Diagnosis Other ( Gangrenous acalculous cholecystitis) Procedure Performed Laparoscopic cholecystectomy Surgeon David Duran MD Anesthesia General Indications Patient is a 78-year-old gentleman who presented to the emergency room with worsening right upper quadrant abdominal pain for the past 4 days. She initially presented to an outside emergency room and had a CT scan abdomen pelvis showing a dilated gallbladder with some pericholecystic inflammation but no gallstones. In the emergency room here at [facility] [place] [id number]. Liver enzymes were normal. He was admitted to the hospital started on broad-spectrum IV antibiotic coverage. Abdominal ultrasound was performed this morning showing dilated gallbladder with gallbladder wall thickening but no gallstones. White blood cell count is elevated to 22,000 today. He is being brought to the operating now for emergent laparoscopic cholecystectomy. Findings Patient had a gangrenous gallbladder with the whole back wall of gallbladder being gangrenous. No gallstones were seen. Description of Procedure After informed consent was obtained patient brought to the operating room was placed supine position and general endotracheal anesthesia was administered. A Lutz catheter was placed decompress the bladder. Abdomen was then prepped and draped usual sterile fashion. A time-out was then performed correctly identifying the patient as well as procedure to be performed. He was already on scheduled IV antibiotics. I entered the abdomen left upper quadrant utilizing a 5mm Optiview port. Once inside the abdomen insufflated to adequate pneumoperitoneum of 15mmHg of CO2. I then placed a 5mm trocar port in the periumbilical position and then the laparoscopic switched over to this port site. Looking into the upper portions of the abdomen and then placed in the epigastric 10mm trocar port and 2 right lateral subcostal 5mm port trocar ports all under direct visualization. The gallbladder was then seen to be markedly distended and some portions of the anterior wall the gallbladder had some patchy gangrene. The gallbladder was so tense I could not grab it so I had to decompress the gallbladder placing an laparoscopic decompressing needle into the dome of the gallbladder aspirating copious amounts of thick bile. Once the gallbladder was decompressed enough to hold with laparoscopic grasper I then hold the gallbladder had elevated the gallbladder over the right half of the liver towards the right shoulder. A 2nd grasper to then used to hold the gallbladder infundibulum. I then proceeded to strip away the visceral peritoneum off of the infundibular gallbladder which was markedly thickened and edematous and inflamed. As I stripped down this layer of tissue identify what appeared to be the cystic duct. This structure was then dissected out circumferentially. What appeared to be the cystic artery which was posterior medial to this initial structure was also then dissected out circumferentially. I then dissected the lower 3rd of the gallbladder off of the liver bed until I had what I felt was the critical view of safety. At this point I then proceeded to place 2 clips proximally cystic duct and 2 clips distally high on infundibular gallbladder. The cystic duct was then divided with Endo Avery. In a similar fashion the cystic artery was clipped and divided as well. I then proceeded to start dissecting the posterior wall off of the liver bed. The posterior wall the gallbladder was all gangrenous and there was not a good plane between tissue and the liver bed. With this dissection there was spillage of copious amounts of bile but no gallstones. Once I had the gallbladder removed from the liver it was then placed into an Endo-Catch bag and brought out through the epigastric port site. The
[2023-07-27] MEDS: fentaNYL CITRATE INJ (*CRX) 100 MCG/2 ML VIAL 25 MCG IV PUSH ×2 (18:09→18:18)
--- NOTE | 2023-07-27 18:37 | PC.NURSE ---
Returned from OR per [ ]. Report received from [Jayla ].
[2023-07-27] MEDS: DEXTROSE 5%/0.45% SOD CHL 1,000 ML 100 ML IV CONT (18:56)
[2023-07-27] MEDS: HYDROmorphone HCL INJ (*CRX) 1 MG/ML SYR IV PUSH (19:56)
[2023-07-27] MEDS: ATORVASTATIN 10 MG TABLET PO (19:59)
[2023-07-27] MEDS: GABAPENTIN 300 MG CAPSULE PO (19:59)
[2023-07-27] MEDS: VANCOMYCIN 1,250 MG/NS 250 ML 1,250 MG/250 ML BAG 166.67 MG IVPB (20:01)
[2023-07-28] VITALS (10 sets, daily range): BP systolic 103–124; BP diastolic 60–83; PULSE 74–101; RESP 16–18; TEMP 36.6–37.3; O2SAT 92–96
[2023-07-28] MEDS: HYDROcodone/acetaminophen (*CRX) 5-325 MG TABLET 1 TAB PO ×3 (06:16→20:18)
[2023-07-28] MEDS: DEXTROSE 5%/0.45% SOD CHL 1,000 ML 100 ML IV CONT (06:17)
[2023-07-28 07:34] LABS: Basophils Percent Auto 0.2 % (0.2-1.2); Hematocrit 36.7 % (42.0-52.0); Hemoglobin 11.5 g/dL (14.0-18.0); Immature Granulocyte Absolute 0.17 K/mm3 (0.00-0.031); Immature Granulocyte Percent A 0.9 % (0-0.5); Lymphocytes Absolute Auto 0.79 K/mm3 (0.9-3.2); Lymphocytes Percent Auto 4.3 % (18.3-44.2); Mean Corpuscular HGB Conc 31.3 g/dl (32-36); Mean Corpuscular Hemoglobin 31.7 pg (26-34); Mean Corpuscular Volume 101.1 fl (80-100); Mean Platelet Volume 9.8 fl (7.4-10.4); Monocytes Absolute Auto 1.2 K/mm3 (0.1-0.6); Monocytes Percent Auto 6.4 % (2.6-8.5); Neutrophils Absolute Auto 16.2 K/mm3 (1.3-6.7); Neutrophils Percent Auto 88.2 % (45.5-73.1); Platelet Count Result 191 k/mm3 (150-375); Red Blood Count 3.63 M/mm3 (4.6-6.20); Red Cell Distribution Width 13.9 % (11.5-14.5); White Blood Count 18.3 K/mm3 (4.5-10.0)
[2023-07-28 07:39] LABS: Alanine Aminotransferase 30 U/L (6-50); Albumin Level 3.4 g/dL (3.5-5.1); Alkaline Phosphatase 64 U/L (38-126); Anion Gap 4 mmol/L (4-12); Aspartate Amino Transferase 40 U/L (17-59); Bilirubin,Total 0.7 mg/dL (0.2-1.3); Blood Urea Nitrogen 23 mg/dL (9-20); Calcium 8.4 mg/dL (8.4-10.2); Carbon Dioxide 26 mmol/L (22-30); Chloride 102 mmol/L (98-107); Estimated CRCL calculation 43 ml/min; Estimated Glomerular Filt Rate 53; Glucose 115 mg/dL (65-110); Potassium 3.6 mmol/L (3.4-5.0); Sodium 132 mmol/L (137-145)
--- NOTE | 2023-07-28 08:11 | P.PNAN_ITS ---
Anes - Prog Note Post-Op Date/Time: 07/28/23 08:11 Cardiovascular status: normal Respiratory status: normal Airway patency: baseline Mental status: baseline Post-Op hydration status: normal Vital Signs: Last Vital Signs Temp 36.6 C 07/28/23 04:28 Pulse 78 07/28/23 04:28 Resp 18 07/28/23 04:28 BP 120/65 07/28/23 04:28 Pulse Ox 96 07/28/23 04:28 O2 Del Method Nasal Cannula 07/27/23 20:00 O2 Flow Rate 2 07/27/23 20:00 Pain Score (VAS): Patient asleep, no nonverbal signs of pain present at this time. I/O: Intake & Output 07/27/23 07/28/23 07/28/23 23:59 07:59 15:59 Intake Total 500 1000 Output Total 140 280 Balance 360 720 Laboratory Tests 07/28/23 06:30 07/28/23 06:30 WBC Pending RBC Pending Hgb Pending Hct Pending MCV Pending MCH Pending MCHC Pending RDW Pending Plt Count Pending MPV Pending Immature Gran % (Auto) Pending Neut % (Auto) Pending Lymph % (Auto) Pending [place] % (Auto) Pending Eos % (Auto) Pending Baso % (Auto) Pending Lymph # (Auto) Pending [place] # (Auto) Pending Eos # (Auto) Pending Baso # (Auto) Pending Abs Immat Gran (auto) Pending Absolute Neuts (auto) Pending Absolute Nucleated RBC Pending Nucleated RBC % Pending Sodium 132 L Potassium 3.6 Chloride 102 Carbon Dioxide 26 Anion Gap 4 BUN 23 H Creatinine 1.30 Estim Creat Clear Calc 43 Estimated GFR 53 L Glucose 115 H Calcium 8.4 Total Bilirubin 0.7 AST 40 ALT 30 Alkaline Phosphatase 64 Total Protein 7.0 Albumin 3.4 L Microbiology 07/26/23 21:46 Blood Blood Culture - Preliminary 07/26/23 21:46 Blood Blood Culture - Preliminary Post-procedural complaints: none Patient Feedback: Patient satisfied with anesthetic care.
--- NOTE | 2023-07-28 09:32 | PM.IMPN ---
Progress Note: A&P Assessment and Plan (1) Sepsis: Code(s): A41.9 - Sepsis, unspecified organism Status: Acute Assessment and Plan: Meets SIRS criteria: Febrile, Tachycardic, WBC 22.8. - lactic acid: 1.3 - 30 mL/kg = 2190ml - suspected source: cholecystitis - blood cultures drawn on 07/25: NGTD - UA: dark yellow, specific gravity 1.042, 51-100 RBC. Otherwise unremarkable. - Abdomen/Pelvis CT: Suggestion mild pericholecystic stranding but without evident gallbladder wall thickening which does raise mild suspicion for acute cholecystitis. - Abdominal US: Gallbladder distention and gallbladder wall thickening, but no visible gallstones or sonographic Miller sign. These findings are indeterminate for acute cholecystitis. - S/p laparoscopic cholecystectomy 07/[address] Duran Resolved (2) Acute cholecystitis: Code(s): K81.0 - Acute cholecystitis Status: Acute Assessment and Plan: Abdomen/Pelvis CT: Suggestion mild pericholecystic stranding but without evident gallbladder wall thickening which does raise mild suspicion for acute cholecystitis. Abdominal US: Gallbladder distention and gallbladder wall thickening, but no visible gallstones or sonographic Miller sign. These findings are indeterminate for acute cholecystitis. Lipase and LFT WNL. - Antibiotics: Vancomycin and cefepime - S/P laparoscopic cholecystectomy with DELBERT drain placement with Dr. Duran 07/26 (3) Hypertension: Code(s): I10 - Essential (primary) hypertension Status: Acute Assessment and Plan: Chronic, stable. Continue home medication. - Amlodipine 5 mg daily - Monitor (4) Hematuria: Code(s): R31.9 - Hematuria, unspecified Status: Acute Assessment and Plan: UA: dark yellow, specific gravity 1.042, 51-100 RBC. Otherwise unremarkable. Patient continues to have minimal hematuria with associated dysuria. States this feels similar to previous kidney stone. Patient found to have a 4mm nonobstructing right renal stone on CT. - Continue to monitor Time Spent With Patient Time with patient: 25 - 35 minutes Subjective Date/time seen: 07/28/23 09:32 Interval history: 78 year old male with past medical history of hypertension, hyperlipidemia, coronary artery disease s/p CABG, GERD, and peripheral neuropathy Patient is pleasant lying in bed with at bedside. Review of Systems Review of Systems: All systems reviewed & are unremarkable except as noted in HPI and below Exam Narrative: AF HR 84 RR 18 SpO2 94 BP 103/60 General: well nourished, well-developed male in no acute respiratory distress who is nontoxic appearing, lying semi recumbent in bed. HEENT: Normocephalic. Atraumatic. Pupils equal round reactive to light. Extraocular movement intact. No facial asymmetry. Chest: Lungs are clear to auscultation bilaterally. No wheezes or crackles. CV: Heart was regular rate and rhythm. S1/S2. No murmurs, gallops, or rubs. Abd: Abdomen was soft. Mild tenderness to palpation. Nondistended. Positive bowel sounds. No organomegaly or masses. Ext: No clubbing, cyanosis, or edema. 2+ DP pulses bilaterally. Neuro: Patient is alert and oriented x4. Speech is clear. Psych: Normal mood and affect. Patient is pleasant and cooperative. Skin: Warm and dry. No rashes noted. Well healing laparoscopic incisions Objective Data Vital Signs Vital Signs: Vital Signs - 24 hr 07/27/23 11:47 07/27/23 12:00 07/27/23 14:30 Temperature 99.6 F 102 F H Pulse Rate 113 H 105 H Respiratory Rate 18 Blood Pressure 137/61 Pulse Oximetry 93 Oxygen Delivery Room Air Oxygen Flow Rate 07/27/23 17:42 07/27/23 17:55 07/27/23 18:10 Temperature 98.1 F Pulse Rate 76 84 84 Respiratory Rate 18 20 18 Blood Pressure 142/67 H 151/70 H 139/72 Pulse Oximetry 100 100 96 Oxygen Delivery Simple Face Mask Simple Face Mask Nasal Cannula Oxygen Flow Rate 8 8 2 07/27/23 18:25 07/27/23 18:38 07/27/23
[2023-07-28] MEDS: amLODIPine BESYLATE 5 MG TABLET PO (09:45)
[2023-07-28] MEDS: CEFEPIME 1 GM/NS 50 ML 1 GM/50 ML BAG IVPB ×2 (09:45→20:15)
[2023-07-28] MEDS: PANTOPRAZOLE 40 MG TABLET PO ×2 (09:45→16:25)
[2023-07-28] MEDS: OPTI-GEN TAB 1 TABLET PO ×2 (09:45→16:25)
[2023-07-28] MEDS: ASPIRIN 81 MG CHEWABLE TABLET PO (09:45)
[2023-07-28] MEDS: PANTOPRAZOLE SODIUM IV 40 MG VIAL IV PUSH (09:46)
--- NOTE | 2023-07-28 17:56 | WPDPN ---
Progress Note: A&P Assessment and Plan (1) Acute cholecystitis: Code(s): K81.0 - Acute cholecystitis Status: Acute Assessment and Plan: Patient actually had gangrenous acalculous cholecystitis. He is doing much better now. White blood cell count is decreasing but still 18,000. Continue IV antibiotics. Can advance to regular diet tomorrow morning and see how he tolerates that. Hopefully he can go home the next 1 to 2 days on some oral antibiotics and his white blood cell count continues to decrease. Will need to be discharged home on another 7 to 10 days of oral antibiotics due to the gangrenous cholecystitis. Likely would remove the drain before he is discharged home. Subjective Date/time seen: 07/28/23 17:56 Interval history: Patient doing much better today. Much less right upper quadrant abdominal pain after his laparoscopic cholecystectomy yesterday for gangrenous cholecystitis. He is tolerating full liquid diet today. No fever tachycardia. [place] [address] [place] [address] today. Liver enzymes are all normal. Exam GI: Other: Abdomen is soft and mildly distended. Laparoscopic incisions are healing well. DELBERT drain output is serosanguineous but no evidence of any bile within the drain. Objective Data Vital Signs Vital Signs: Vital Signs - 24 hr 07/27/23 18:10 07/27/23 18:25 07/27/23 18:38 Temperature Pulse Rate 84 86 87 Respiratory Rate 18 16 16 Blood Pressure 139/72 149/72 H 145/70 H Pulse Oximetry 96 97 97 Oxygen Delivery Nasal Cannula Nasal Cannula Nasal Cannula Oxygen Flow Rate 2 2 2 07/27/23 18:55 07/27/23 19:10 07/27/23 20:00 Temperature 36.8 C 36.7 C Pulse Rate 92 88 Respiratory Rate 16 18 Blood Pressure 149/75 H 131/76 Pulse Oximetry 99 100 100 Oxygen Delivery Nasal Cannula Oxygen Flow Rate 2 07/27/23 19:45 07/27/23 20:45 07/28/23 00:00 Temperature 36.6 C 36.6 C Pulse Rate 86 94 75 Respiratory Rate 16 16 Blood Pressure 143/74 H 135/69 Pulse Oximetry 98 97 Oxygen Delivery Oxygen Flow Rate 07/28/23 04:00 07/28/23 04:28 07/28/23 08:45 Temperature 36.6 C 37.1 C Pulse Rate 82 78 101 H Respiratory Rate 18 18 Blood Pressure 120/65 124/83 Pulse Oximetry 96 92 Oxygen Delivery Oxygen Flow Rate 07/28/23 08:00 07/28/23 08:00 07/28/23 12:00 Temperature 36.7 C Pulse Rate 75 84 Respiratory Rate 18 Blood Pressure 103/60 Pulse Oximetry 94 Oxygen Delivery Room Air Oxygen Flow Rate 07/28/23 16:00 Temperature 36.8 C Pulse Rate 82 Respiratory Rate 16 Blood Pressure 111/66 Pulse Oximetry 95 Oxygen Delivery Oxygen Flow Rate Intake/Output Intake/Output: Intake & Output 07/25/23 07/26/23 07/27/23 07/28/23 23:59 23:59 23:59 23:59 Intake Total 550 1550 1390 Output Total 140 280 Balance 550 1410 1110 Meds/Results Medications: Active Medications Generic Name Dose Route Start Last Admin Trade Name Freq PRN Reason Stop Dose Admin Acetaminophen 650 mg 07/26/23 20:04 07/27/23 05:30 Acetaminophen 325 Mg Tablet PO 650 mg Q4H PRN Administration Mild Pain (1-3) or Fever Acetaminophen 1,000 mg 07/27/23 18:39 Acetaminophen 500 Mg Tablet PO Q6H PRN Mild Pain (1-3) or Fever Hydrocodone Bitart/Acetaminophen 1 tab 07/27/23 18:39 07/28/23 12:56 Hydrocodone/Acetaminophen (*Crx) 5-325 Mg Tablet PO 1 tab Q4H PRN Administration Pain Rated 4-6 Amlodipine Besylate 5 mg 07/28/23 09:00 07/28/23 09:45 Amlodipine Besylate 5 Mg Tablet PO 5 mg DAILY FELICITY Administration Aspirin 81 mg 07/28/23 09:00 07/28/23 09:45 Aspirin 81 Mg Chewable Tablet PO 81 mg DAILY FELICITY Administration Atorvastatin Calcium 10 mg 07/27/23 21:00 07/27/23 19:59 Atorvastatin 10 Mg Tablet PO 10 mg HS FELICITY Administration Fluorometholone 1 drop 07/28/23 21:00 Fluorometholone 0.1% Op Susp 5 Ml Btl EACH EYE HS [facility] Fluticasone Propionate
[2023-07-28] MEDS: VANCOMYCIN 1,250 MG/NS 250 ML 1,250 MG/250 ML BAG 166.67 MG IVPB (20:15)
[2023-07-28] MEDS: ATORVASTATIN 10 MG TABLET PO (20:16)
[2023-07-28] MEDS: GABAPENTIN 300 MG CAPSULE PO (20:16)
[2023-07-29] VITALS (10 sets, daily range): BP systolic 113–142; BP diastolic 52–77; PULSE 67–100; RESP 12–18; TEMP 36.6–37.1; O2SAT 92–94
[2023-07-29] MEDS: HYDROcodone/acetaminophen (*CRX) 5-325 MG TABLET 1 TAB PO ×3 (00:29→21:12)
[2023-07-29] MEDS: DEXTROSE 5%/0.45% SOD CHL 1,000 ML 100 ML IV CONT ×2 (00:29→18:31)
[2023-07-29] MEDS: FLUOROMETHOLONE 0.1% OP SUSP 5 ML BTL 1 DROP EACH EYE ×2 (00:29→21:10)
[2023-07-29] MEDS: oxyCODONE HCL (*CRX) 5 MG TAB IR PO (03:52)
[2023-07-29 06:07] LABS: Basophils Percent Auto 0.2 % (0.2-1.2); Eosinophils Percent Auto 0.4 % (0-4.4); Hemoglobin 10.5 g/dL (14.0-18.0); Immature Granulocyte Absolute 0.05 K/mm3 (0.00-0.031); Immature Granulocyte Percent A 0.5 % (0-0.5); Lymphocytes Absolute Auto 1.11 K/mm3 (0.9-3.2); Lymphocytes Percent Auto 10.2 % (18.3-44.2); Mean Corpuscular HGB Conc 31.8 g/dl (32-36); Mean Corpuscular Hemoglobin 31.8 pg (26-34); Mean Platelet Volume 9.2 fl (7.4-10.4); Monocytes Absolute Auto 0.7 K/mm3 (0.1-0.6); Monocytes Percent Auto 6.5 % (2.6-8.5); Neutrophils Absolute Auto 8.9 K/mm3 (1.3-6.7); Neutrophils Percent Auto 82.2 % (45.5-73.1); Platelet Count Result 175 k/mm3 (150-375); Red Cell Distribution Width 13.9 % (11.5-14.5); White Blood Count 10.9 K/mm3 (4.5-10.0)
[2023-07-29 06:16] LABS: Anion Gap 1 mmol/L (4-12); Blood Urea Nitrogen 22 mg/dL (9-20); Calcium 8.2 mg/dL (8.4-10.2); Carbon Dioxide 28 mmol/L (22-30); Chloride 107 mmol/L (98-107); Estimated CRCL calculation 43 ml/min; Estimated Glomerular Filt Rate 53; Glucose 117 mg/dL (65-110); Potassium 3.5 mmol/L (3.4-5.0); Sodium 136 mmol/L (137-145)
--- NOTE | 2023-07-29 07:36 | PM.IMPN ---
Progress Note: A&P Assessment and Plan (1) Sepsis: Code(s): A41.9 - Sepsis, unspecified organism Status: Acute Assessment and Plan: Meets SIRS criteria: Febrile, Tachycardic, WBC 22.8 (now 10.9) - lactic acid: 1.3 - 30 mL/kg = 2190ml - suspected source: cholecystitis - blood cultures drawn on 07/25: NGTD - UA: dark yellow, specific gravity 1.042, 51-100 RBC. Otherwise unremarkable. - Abdomen/Pelvis CT: Suggestion mild pericholecystic stranding but without evident gallbladder wall thickening which does raise mild suspicion for acute cholecystitis. - Abdominal US: Gallbladder distention and gallbladder wall thickening, but no visible gallstones or sonographic Miller sign. These findings are indeterminate for acute cholecystitis. - S/p laparoscopic cholecystectomy 07/[address] Duran Resolved (2) Acute gangrenous cholecystitis: Code(s): K81.0 - Acute cholecystitis Status: Acute Assessment and Plan: Abdomen/Pelvis CT: Suggestion mild pericholecystic stranding but without evident gallbladder wall thickening which does raise mild suspicion for acute cholecystitis. Abdominal US: Gallbladder distention and gallbladder wall thickening, but no visible gallstones or sonographic Miller sign. These findings are indeterminate for acute cholecystitis. Lipase and LFT WNL. - Antibiotics: Vancomycin (07/26-07/27) and cefepime (07/26-). Continue IV antibiotics today. Patient will need to be discharged home on another 7-10 days of oral antibiotics due to gangrenous cholecystitis. - S/P laparoscopic cholecystectomy with DELBERT drain placement with Dr. Duran 07/26 - Drain appears to have small amount of bile. He could have small bile leak due to gangrenous cholecystitis. DELBERT drain will stay in place today and continue to monitor. If there is still concern for bile leak tomorrow patient will be discharged home with drain in place. - Advance diet as tolerated (3) Hypertension: Code(s): I10 - Essential (primary) hypertension Status: Acute Assessment and Plan: Chronic, stable. Continue home medication. - Amlodipine 5 mg daily - Monitor (4) Hematuria: Code(s): R31.9 - Hematuria, unspecified Status: Acute Assessment and Plan: UA: dark yellow, specific gravity 1.042, 51-100 RBC. Otherwise unremarkable. Patient continues to have minimal hematuria with associated dysuria. States this feels similar to previous kidney stone. Patient found to have a 4mm nonobstructing right renal stone on CT. - Continue to monitor Time Spent With Patient Time with patient: 25 - 35 minutes Subjective Date/time seen: 07/29/23 07:36 Interval history: 78 year old male with past medical history of hypertension, hyperlipidemia, coronary artery disease s/p CABG, GERD, and peripheral neuropathy presented to the hospital for cholecystitis. Patient is pleasant sitting on the side of the bed eating lunch with at bedside. He states that his pain is well controlled on the current pain regimen. He continues to pass flatus but has not had a BM today. He is tolerated his current diet well and will continue to advance his diet as tolerated. He notes that his throat is still sore following surgery likely related to the intubation and has a harder time swallowing his food. Discussed with patient that if he needs he is able to deescalate his diet. He states that he will eat slowly and drink water with his meal to help. He denies nausea/vomiting, chest pain, shortness of breath and changes in bladder. Review of Systems Review of Systems: All systems reviewed & are unremarkable except as noted in HPI and below Exam Narrative: AF HR 73 RR 14 SpO2 93 BP 113/52 General: well nourished, well-developed male in no acute respiratory distress who is nontoxic appearing, lying semi recumbent in bed. HEENT: Normocephalic. Atraumatic. Pupils equal round reactive to light. Extraocular movement intact. No facial asymmetry. Chest: Lungs ar
--- NOTE | 2023-07-29 07:44 | WPDPN ---
Progress Note: A&P Assessment and Plan (1) Acute gangrenous cholecystitis: Code(s): K81.0 - Acute cholecystitis Status: Acute Assessment and Plan: Patient is doing well after laparoscopic cholecystectomy for acute gangrenous acalculous cholecystitis. White blood cell count has decreased from 18,000 down to 11,000. No signs of sepsis now. DELBERT drain has what appears to be maybe a small amount of bile. He could have a small bile leak from the gallbladder bed given the gangrenous cholecystitis. Will leave the DELBERT drain in place for today continue to monitor. Continue the IV antibiotics today. If he continues to improve tomorrow and advanced to a normal diet then perhaps he can be discharged home tomorrow on oral antibiotics. If he still has evidence of small amount of bile in the drain then I would discharge him home with the drain and hopefully any small bile leak would stop in the next few days. If not then he will need a HIDA scan to rule out bile leak and if and ongoing bile leak is seen then referral to GI for ERCP and stent placement. Bile leak. Continue supportive management. Subjective Date/time seen: 07/29/23 07:44 Interval history: Patient feels pretty well today. Slept okay. No nausea or vomiting. Tolerated full liquids. No fever or tachycardia. White blood cell count decreased from 18,000 to 11,000 today. Liver enzymes remain normal. Exam GI: Other: Abdomen is soft and a little distended. Port site incisions are healing well. Right upper quadrant DELBERT drain has some bile tinged fluid. Output is still relatively low. Minimal tenderness to palpation. Objective Data Vital Signs Vital Signs: Vital Signs - 24 hr 07/28/23 08:45 07/28/23 08:00 07/28/23 08:00 Temperature 37.1 C Pulse Rate 101 H 75 Respiratory Rate 18 Blood Pressure 124/83 Pulse Oximetry 92 Oxygen Delivery Room Air 07/28/23 12:00 07/28/23 16:00 07/28/23 12:00 Temperature 36.7 C 36.8 C Pulse Rate 84 82 92 Respiratory Rate 18 16 Blood Pressure 103/60 111/66 Pulse Oximetry 94 95 Oxygen Delivery 07/28/23 16:00 07/28/23 20:37 07/29/23 04:29 Temperature 37.3 C 36.9 C Pulse Rate 87 86 78 Respiratory Rate 16 16 Blood Pressure 121/64 113/64 Pulse Oximetry 95 92 Oxygen Delivery 07/28/23 21:53 07/28/23 20:00 07/29/23 04:00 Temperature Pulse Rate 74 67 Respiratory Rate Blood Pressure Pulse Oximetry 95 Oxygen Delivery Room Air 07/29/23 00:00 Temperature Pulse Rate 78 Respiratory Rate Blood Pressure Pulse Oximetry Oxygen Delivery Intake/Output Intake/Output: Intake & Output 07/26/23 07/27/23 07/28/23 07/29/23 23:59 23:59 23:59 23:59 Intake Total 550 1550 2612 Output Total 140 310 700 Balance 550 1410 2302 -700 Meds/Results Medications: Active Medications Generic Name Dose Route Start Last Admin Trade Name Freq PRN Reason Stop Dose Admin Acetaminophen 650 mg 07/26/23 20:04 07/27/23 05:30 Acetaminophen 325 Mg Tablet PO 650 mg Q4H PRN Administration Mild Pain (1-3) or Fever Acetaminophen 1,000 mg 07/27/23 18:39 Acetaminophen 500 Mg Tablet PO Q6H PRN Mild Pain (1-3) or Fever Hydrocodone Bitart/Acetaminophen 1 tab 07/27/23 18:39 07/29/23 00:29 Hydrocodone/Acetaminophen (*Crx) 5-325 Mg Tablet PO 1 tab Q4H PRN Administration Pain Rated 4-6 Amlodipine Besylate 5 mg 07/28/23 09:00 07/28/23 09:45 Amlodipine Besylate 5 Mg Tablet PO 5 mg DAILY FELICITY Administration Aspirin 81 mg 07/28/23 09:00 07/28/23 09:45 Aspirin 81 Mg Chewable Tablet PO 81 mg DAILY FELICITY Administration Atorvastatin Calcium 10 mg 07/27/23 21:00 07/28/23 20:16 Atorvastatin 10 Mg Tablet PO 10 mg HS FELICITY Administration Fluorometholone 1 drop 07/28/23 21:00 07/29/23 00:29 Fluorometholone 0.1% Op Susp 5 Ml Btl EACH EYE 1 drop HS FELICITY Administration Fluticasone Propionate 1 spray 07/27/23 1
[2023-07-29] MEDS: ASPIRIN 81 MG CHEWABLE TABLET PO (08:23)
[2023-07-29] MEDS: PANTOPRAZOLE 40 MG TABLET PO ×2 (08:23→16:17)
[2023-07-29] MEDS: amLODIPine BESYLATE 5 MG TABLET PO (08:23)
[2023-07-29] MEDS: OPTI-GEN TAB 1 TABLET PO ×2 (08:23→16:17)
[2023-07-29] MEDS: CEFEPIME 1 GM/NS 50 ML 1 GM/50 ML BAG IVPB ×2 (08:24→21:08)
[2023-07-29] MEDS: GABAPENTIN 300 MG CAPSULE PO (21:08)
[2023-07-29] MEDS: ATORVASTATIN 10 MG TABLET PO (21:08)
[2023-07-29] MEDS: SODIUM CHLORIDE 0.9% IV 100 ML (21:10)
[2023-07-30] VITALS: BP 112/67; PULSE 86; PULSE 89; RESP 16; TEMP 37; O2SAT 95
[2023-07-30] MEDS: oxyCODONE HCL (*CRX) 5 MG TAB IR PO (00:22)
[2023-07-30 04:00] VITALS: BP 155/83; PULSE 80; PULSE 86; RESP 18; TEMP 37; O2SAT 93
[2023-07-30] MEDS: DEXTROSE 5%/0.45% SOD CHL 1,000 ML 100 ML IV CONT (05:11)
[2023-07-30 06:15] LABS: Basophils Percent Auto 0.5 % (0.2-1.2); Eosinophils Absolute Auto 0.2 K/mm3 (0-0.3); Eosinophils Percent Auto 2.5 % (0-4.4); Hematocrit 32.4 % (42.0-52.0); Hemoglobin 10.5 g/dL (14.0-18.0); Immature Granulocyte Absolute 0.04 K/mm3 (0.00-0.031); Immature Granulocyte Percent A 0.5 % (0-0.5); Lymphocytes Absolute Auto 1.33 K/mm3 (0.9-3.2); Lymphocytes Percent Auto 17.5 % (18.3-44.2); Mean Corpuscular HGB Conc 32.4 g/dl (32-36); Mean Corpuscular Volume 98.8 fl (80-100); Mean Platelet Volume 9.2 fl (7.4-10.4); Monocytes Absolute Auto 0.7 K/mm3 (0.1-0.6); Monocytes Percent Auto 9.1 % (2.6-8.5); Neutrophils Absolute Auto 5.3 K/mm3 (1.3-6.7); Neutrophils Percent Auto 69.9 % (45.5-73.1); Platelet Count Result 205 k/mm3 (150-375); Red Blood Count 3.28 M/mm3 (4.6-6.20); Red Cell Distribution Width 13.4 % (11.5-14.5); White Blood Count 7.6 K/mm3 (4.5-10.0)
--- NOTE | 2023-07-30 07:59 | PM.IMPN ---
Progress Note: A&P Assessment and Plan (1) Sepsis: Code(s): A41.9 - Sepsis, unspecified organism Status: Acute Assessment and Plan: Meets SIRS criteria: Febrile, Tachycardic, WBC 22.8 (now 10.9) - lactic acid: 1.3 - 30 mL/kg = 2190ml - suspected source: cholecystitis - blood cultures drawn on 07/25: NGTD - UA: dark yellow, specific gravity 1.042, 51-100 RBC. Otherwise unremarkable. - Abdomen/Pelvis CT: Suggestion mild pericholecystic stranding but without evident gallbladder wall thickening which does raise mild suspicion for acute cholecystitis. - Abdominal US: Gallbladder distention and gallbladder wall thickening, but no visible gallstones or sonographic Miller sign. These findings are indeterminate for acute cholecystitis. - S/p laparoscopic cholecystectomy 07/[address] Duran Resolved (2) Acute gangrenous cholecystitis: Code(s): K81.0 - Acute cholecystitis Status: Acute Assessment and Plan: Abdomen/Pelvis CT: Suggestion mild pericholecystic stranding but without evident gallbladder wall thickening which does raise mild suspicion for acute cholecystitis. Abdominal US: Gallbladder distention and gallbladder wall thickening, but no visible gallstones or sonographic Miller sign. These findings are indeterminate for acute cholecystitis. Lipase and LFT WNL. - Antibiotics: Vancomycin (07/26-07/27) and cefepime (07/26-). Continue IV antibiotics today. Patient will need to be discharged home on another 7-10 days of oral antibiotics due to gangrenous cholecystitis. - S/P laparoscopic cholecystectomy with DELBERT drain placement with Dr. Duran 07/26 - Drain appears to have small amount of bile. He could have small bile leak due to gangrenous cholecystitis. DELBERT drain will stay in place today and continue to monitor. If there is still concern for bile leak tomorrow patient will be discharged home with drain in place. - Advance diet as tolerated (3) Hypertension: Code(s): I10 - Essential (primary) hypertension Status: Acute Assessment and Plan: Chronic, stable. Continue home medication. - Amlodipine 5 mg daily - Monitor (4) Hematuria: Code(s): R31.9 - Hematuria, unspecified Status: Acute Assessment and Plan: UA: dark yellow, specific gravity 1.042, 51-100 RBC. Otherwise unremarkable. Patient continues to have minimal hematuria with associated dysuria. States this feels similar to previous kidney stone. Patient found to have a 4mm nonobstructing right renal stone on CT. - Continue to monitor Subjective Date/time seen: 07/30/23 07:59 Interval history: 78 year old male with past medical history of hypertension, hyperlipidemia, coronary artery disease s/p CABG, GERD, and peripheral neuropathy presented to the hospital for cholecystitis. Review of Systems Review of Systems: All systems reviewed & are unremarkable except as noted in HPI and below Exam Narrative: AF General: well nourished, well-developed male in no acute respiratory distress who is nontoxic appearing, lying semi recumbent in bed. HEENT: Normocephalic. Atraumatic. Pupils equal round reactive to light. Extraocular movement intact. No facial asymmetry. Chest: Lungs are clear to auscultation bilaterally. No wheezes or crackles. CV: Heart was regular rate and rhythm. S1/S2. No murmurs, gallops, or rubs. Abd: Abdomen was soft. Mild tenderness to palpation. Nondistended. Positive bowel sounds. No organomegaly or masses. Ext: No clubbing, cyanosis, or edema. 2+ DP pulses bilaterally. Neuro: Patient is alert and oriented x4. Speech is clear. Psych: Normal mood and affect. Patient is pleasant and cooperative. Skin: Warm and dry. No rashes noted. Well healing laparoscopic incisions with drain in place. Objective Data Vital Signs Vital Signs: Vital Signs - 24 hr 07/29/23 09:05 07/29/23 11:10 07/29/23 08:00 Temperature 98.1 F 98.4 F Pulse Rate 83 73 73 Respiratory Rate 16 14 14 Blood Pressure 1
[2023-07-30 08:00] VITALS: BP 150/80; PULSE 68; RESP 18; TEMP 36.3; O2SAT 96
[2023-07-30] MEDS: amLODIPine BESYLATE 5 MG TABLET PO (08:11)
[2023-07-30] MEDS: CEFEPIME 1 GM/NS 50 ML 1 GM/50 ML BAG IVPB (08:11)
[2023-07-30] MEDS: ASPIRIN 81 MG CHEWABLE TABLET PO (08:11)
[2023-07-30] MEDS: OPTI-GEN TAB 1 TABLET PO (08:11)
[2023-07-30] MEDS: PANTOPRAZOLE 40 MG TABLET PO (08:11)
[2023-07-30 12:00] VITALS: BP 130/74; PULSE 77; RESP 18; TEMP 37.2; O2SAT 94
--- NOTE | 2023-07-30 18:06 | PM.DS ---
DS: Admitting Diagnosis Discharge Date 07/30/23 Admitting Diagnosis Sepsis Acute gangrenous cholecystitis Hypertension Hematuria DS: Discharge Diagnosis Discharge Diagnosis (1) Sepsis: Code(s): A41.9 - Sepsis, unspecified organism Status: Acute (2) Acute gangrenous cholecystitis: Code(s): K81.0 - Acute cholecystitis Status: Acute (3) Hypertension: Code(s): I10 - Essential (primary) hypertension Status: Acute (4) Hematuria: Code(s): R31.9 - Hematuria, unspecified Status: Acute DS: Summary Hospital Course Reason for hospitalization: Sepsis Acute gangrenous cholecystitis Hypertension Hematuria Hospital Course: 78 year old male with past medical history of hypertension, hyperlipidemia, coronary artery disease s/p CABG, GERD, and peripheral neuropathy presented to the hospital for cholecystitis. He underwent an Abdomen/Pelvis CT which suggested mild pericholecystic stranding but without evident gallbladder wall thickening which does raise mild suspicion for acute cholecystitis. Abdominal US which revealed gallbladder distention and gallbladder wall thickening, but no visible gallstones or sonographic Miller sign. These findings are indeterminate for acute cholecystitis. Lipase and LFT were WNL. Patient met SIRS criteria due to ongoing tachycardia, being febrile, and elevated WBC. He was started on vancomycin and cefepime on admission. The vancomycin was later discontinued due to a negative MRSA. Patient then underwent a laparoscopic cholecystectomy with DELBERT drain placement with Dr. Duran on 07/26. Sepsis resolved postoperatively. DELBERT drain appeared to have small amount of bile. He could have had a small bile leak due to gangrenous cholecystitis. Patient was discharged home with DELBERT drain in place. He was started on levaquin 500 mg daily for 10 days and has a follow up appointment with Dr. Duran on 08/01/23. Patient discharged home in a stable condition. He will follow up with surgery as scheduled and with PCP in one week. Status at Discharge Functional status at discharge: independent ambulation Time Spent with Patient Time attestation: Total time spent providing and/or coordinating discharge services: Exam Narrative: AF HR 77 RR 18 SpO2 94 BP 130/74 General: well nourished, well-developed male in no acute respiratory distress who is nontoxic appearing, lying semi recumbent in bed. HEENT: Normocephalic. Atraumatic. Pupils equal round reactive to light. Extraocular movement intact. No facial asymmetry. Chest: Lungs are clear to auscultation bilaterally. No wheezes or crackles. CV: Heart was regular rate and rhythm. S1/S2. No murmurs, gallops, or rubs. Abd: Abdomen was soft. Nontender. Nondistended. Positive bowel sounds. No organomegaly or masses. Ext: No clubbing, cyanosis, or edema. 2+ DP pulses bilaterally. Neuro: Patient is alert and oriented x4. Speech is clear. Psych: Normal mood and affect. Patient is pleasant and cooperative. Skin: Warm and dry. No rashes noted. Well healing laparoscopic incisions with drain in place. DS: Data Data Completed and Pending Completed studies during hospitalization: Abdomen US Abdomen/Pelvis CT Pending studies at discharge: Pending at discharge 07/27/23 17:21 Surgical [PTH] Routine Labs on day of discharge: Labs from last 24 hours 07/30/23 06:05 WBC 7.6 RBC 3.28 L Hgb 10.5 L Hct 32.4 L MCV 98.8 MCH 32.0 MCHC 32.4 RDW 13.4 Plt Count 205 MPV 9.2 Immature Gran % (Auto) 0.5 Neut % (Auto) 69.9 Lymph % (Auto) 17.5 L [place] % (Auto) 9.1 H Eos % (Auto) 2.5 Baso % (Auto) 0.5 Lymph # (Auto) 1.33 [place] # (Auto) 0.7 H Eos # (Auto) 0.2 Baso # (Auto) 0.0 Abs Immat Gran (auto) 0.04 H Absolute Neuts (auto) 5.3 Absolute Nucleated RBC 0.000 Nucleated RBC % 0.0 Sodium Pending Potassium Pending Chloride Pending Carbon Dioxide Pending Anion Gap Pending BUN Pending Creatinine Pending Estim Creat Katherine
== END 2023-07-30 14:32 | disposition home or self-care (01) | DRG 854 ==
LOC: ANHED 19:30 → ANH3MEDSUR 23:28
PROVIDERS: Nurse Practitioner Family; Surgery; Admitting Provider Internal Medicine; Emergency Provider Student in an Organized Health Care Education/Training Program; Visit Provider Internal Medicine
PROC: 0FT44ZZ Resection of Gallbladder, Percutaneous Endoscopic Approach (ICD-10-PCS; CPT 47562; principal; 2023-07-27 15:30)
DX: A41.9 Sepsis, unspecified organism (principal); K81.0 Acute cholecystitis; K82.A1 Gangrene of gallbladder in cholecystitis; I10 Essential (primary) hypertension; D72.829 Elevated white blood cell count, unspecified; D64.9 Anemia, unspecified; I25.10 Atherosclerotic heart disease of native coronary artery without angina pectoris; E78.5 Hyperlipidemia, unspecified; G62.9 Polyneuropathy, unspecified; K21.9 Gastro-esophageal reflux disease without esophagitis; N20.0 Calculus of kidney; J44.9 Chronic obstructive pulmonary disease, unspecified; R31.9 Hematuria, unspecified; Z95.1 Presence of aortocoronary bypass graft
CPT/HCPCS: 36415; 74177; 76705; 80048; 80053; 81001; 83605; 83690; 85025; 85610; 85730; 86850; 86900; 86901; 87040; 88304; 93005; 99285; A9270; C9113; J0692; J1100; J1170; J2270; J2371; J2405; J3010; J3370; J7120; Q9967